=== PATIENT | male | born 1995 | race Hispanic/Latino ===

== ENCOUNTER 2021-04-20 11:26 | Emergency (ER) | payer OTHER ==
[~2021-04-20] VITALS: Ht 180.3 cm; Wt 75.9 kg
[2021-04-20] MEDS ORDERED: LIDOCAINE 5% (LIDODERM) PATCH TD ONE (12:30)
[2021-04-20] MEDS ORDERED: KETOROLAC 30 MG/ML 1ML VIAL IM ONE (12:30)
[2021-04-20] MEDS ORDERED: methocarbamoL 500 MG TAB PO ONE (12:30)
[2021-04-20] MEDS ORDERED: LIDO5DIS41 TOP (12:31)
[2021-04-20] MEDS ORDERED: METH-1164 PO (12:32)
[2021-04-20 14:19] VITALS: BP 111/68
[2021-04-20] MEDS ORDERED: **NOTE PATIENT COMMENT** MISC XX SCH (21:00)
== END 2021-04-20 14:16 | disposition home or self-care (01) ==
LOC: M ED 11:26
DX: M54.2 Cervicalgia (principal)
CPT/HCPCS: 96372; 99283; J1885

== ENCOUNTER 2021-05-26 11:57 | Emergency (ER) | payer OTHER ==
[~2021-05-26] VITALS: Ht 180.3 cm; Wt 75.5 kg
[~2021-05-26 11:57] MED LIST: LIDO5DIS41 TOP; METH-1164 PO
[2021-05-26] MEDS ORDERED: CEFU1TAB20 PO (12:03)
--- OUTSIDE RECORDS SUMMARY | 2021-05-26 12:04 | CCD ---
Author Author [facility] Organization [facility] Address Unknown Phone Unavailable Care Team Providers Care Research Development Director Name Role Phone Bridgette, Sanjay Craig Adriana MOVEMENT ASSEMBLER-C Unavailable Unavailabl e Bridgette, Sanjay Craig Adriana MOVEMENT ASSEMBLER-C Unavailable Unavailabl e Bridgette, Sanjay Craig Adriana MOVEMENT ASSEMBLER-C Unavailable Unavailabl e [facility]idgette, [facility]ana MOVEMENT ASSEMBLER-C Unavailable Unavailabl e Bridgette, [facility]ara Adriana MOVEMENT ASSEMBLER-C Unavailable Unavailabl e Bridgette, [facility] Adriana MOVEMENT ASSEMBLER-C Unavailable Unavailabl e Bridgette, [facility] Adriana MOVEMENT ASSEMBLER-C Unavailable Unavailabl e Bridgette, [facility] Adriana MOVEMENT ASSEMBLER-C Unavailable Unavailabl e Bridgette, [facility] Adriana MOVEMENT ASSEMBLER-C Unavailable Unavailabl e Bridgette, [facility] Adriana MOVEMENT ASSEMBLER-C Unavailable Unavailabl e Bridgette, Ivana Kiara Adriana MOVEMENT ASSEMBLER-C Unavailable Unavailabl e Bridgette, Ivana Kiara Adriana MOVEMENT ASSEMBLER-C Unavailable Unavailabl e Bridgette, Ivana Kiara Adriana MOVEMENT ASSEMBLER-C Unavailable Unavailabl e Bridgette, [facility] Adriana MOVEMENT ASSEMBLER-C Unavailable Unavailabl e Bridgette, [facility] Adriana MOVEMENT ASSEMBLER-C Unavailable Unavailabl e Bridgette, [facility] Adriana MOVEMENT ASSEMBLER-C Unavailable Unavailabl e Bridgette, [facility] Adriana MOVEMENT ASSEMBLER-C Unavailable Unavailabl e Bridgette, [facility] Adriana MOVEMENT ASSEMBLER-C Unavailable Unavailabl e Bridgette, [facility] Mullenyce MOVEMENT ASSEMBLER-C Unavailable Unavailabl e Brigdette, Regdarwin Mullenyce MOVEMENT ASSEMBLER-C Unavailable Unavailabl e Bridgette, Reginamichelle W Adriana MOVEMENT ASSEMBLER-C Unavailable Unavailabl e Bridgette, Reginah W Adriana MOVEMENT ASSEMBLER-C Unavailable Unavailabl e Bridgette, Reginamichelle Mullenyce MOVEMENT ASSEMBLER-C Unavailable Unavailabl e Bridgette, Reginamichelle W Adriana MOVEMENT ASSEMBLER-C Unavailable Unavailabl e Bridgette, Reginah W Adriana MOVEMENT ASSEMBLER-C Unavailable Unavailabl e Bridgette, Reginah W Adriana MOVEMENT ASSEMBLER-C Unavailable Unavailabl e Bridgette, Reginah W Adriana MOVEMENT ASSEMBLER-C Unavailable Unavailabl e Bridgette, Reginamichelle W Adriana MOVEMENT ASSEMBLER-C Unavailable Unavailabl e Bridgette, Regdarwin Mullenyce MOVEMENT ASSEMBLER-C Unavailable Unavailabl e Bridgette, Regdarwin Mullenyce MOVEMENT ASSEMBLER-C Unavailable Unavailabl e Bridgette, Regdarwin Mullenyce MOVEMENT ASSEMBLER-C Unavailable Unavailabl e Bridgette, Regdarwin Mulelnyce MOVEMENT ASSEMBLER-C Unavailable Unavailacosta e XIN TURNER MD Unavailable Unavailable XIN TURNER MD Unavailable Unavailable XIN TURNER MD Unavailable Unavailable XIN TURNER MD Unavailable Unavailable XIN TURNER MD Unavailable Unavailable XIN TURNER MD Unavailable Unavailable XIN TURNER MD Unavailable Unavailable XIN TURNER MD Unavailable Unavailable XIN TURNER MD Unavailable Unavailable XIN TURNER MD Unavailable Unavailable XIN TURNER MD Unavailable Unavailable XIN TURNER MD Unavailable Unavailable XIN TURNER MD Unavailable Unavailable XIN TURNER MD Unavailable Unavailable XIN TURNER MD Unavailable Unavailable XIN TURNER MD Unavailable Unavailable XIN TURNER MD Unavailable Unavailable XIN TURNER MD Unavailable Unavailable XIN TURNER MD Unavailable Unavailable XIN TURNER MD Unavailable Unavailable XIN TURNER MD Unavailable Unavailable XIN TURNER MD Unavailable Unavailable XIN TURNER MD Unavailable Unavailable XIN TURNER MD Unavailable Unavailable XIN TURNER MD Unavailable Unavailable XIN TURNER MD Unavailable Unavailable XIN TURNER MD Unavailable Unavailable TURNER XIN KATZ MD Unavailable Unavailable TURNER XIN KATZ MD Unavailable Unavailable TURNER XIN KATZ MD Unavailable Unavailable TURNER XIN KATZ MD Unavailable Unavailable TURNER XIN KATZ MD Unavailable Unavailable TURNER XIN KATZ MD Unavailable Unavailable Re-disclosure Warning The records that you are about to access may contain information from federally-assisted alcohol or drug abuse programs. If such information is present, then the following federally mandated warning applies: This information has been disclosed to you from records protected by federal confidentiality rules (42 CFR part 2). The federal rules prohibit you from making any further disclosure of this information unless further disclosure is expressly permitted by the written consent of the person to whom it pertains or as otherwise permitted by 42 CFR part 2. A general authorization for the release of medical or other information is NOT sufficient for this purpose. The Federal rules restrict any use of the information to criminally investigate or prosecute any alcohol or drug abuse patient.The records that you are about to access may contain highly sensitive health information, the redisclosure of which is protected by Article 27-F of the [facility] Public Health law. If you continue you may have access to information: Regarding HIV / AIDS; Provided by facilities licensed or operated by the [facility] Office of Mental Health; or Provided by the [facility] Office for People With Developmental Disabilities. If such information is present, then the following [facility] mandated warning applies: This information has been disclosed to you from confidential records which are protected by state law. State law prohibits you from making any further disclosure of this information without the specific written consent of the person to whom it pertains, or as otherwise permitted by law. Any unauthorized further disclosure in violation of state law may result in a fine or fpc sentence or both. A general authorization for the release of medical or other information is NOT sufficient authorization for further disc losure. Allergies and Adverse Reactions Type Description Substance Reaction Status Data Source(s ) Drug allergy No Known Drug Allergies No Known Drug Allergies [facility] Drug allergy No Known Allergies No Known Allergies [facility] Encounters Encounter Providers Location Date Indications Data Source(s ) Outpatient Attender: GIANNA TURNER MD 05/24 09:34:00 AM EDT 05/24/2021 09:34:00 AM [facility] Outpatient Attender: Adriana Angeles MOVEMENT ASSEMBLER-C EMERGENCY ROOM-LAB REF 05/24/2021 08:28:00 AM EDT - 05/24/2021 08:28:00 AM EDT [facility] Outpatient Attender: Adriana Thorntonu MOVEMENT ASSEMBLER-C 05/08/2021 09:07:0 0 AM EDT [facility] Outpatient [facility] 05/08/2021 12:00:00 AM EDT eCW1 ([facility]) Medications No Information Insurance Providers Payer name Policy type / Coverage type Policy ID Covered green party ID Covered green party's relationship to harrison Policy Harrison Plan Information [facility] ACTIVE DUTY [id number] SP [id number] [facility] WPS [id number] S [id number] Problems, Conditions, and Diagnoses Code Display Name Description Problem Type Effective Dates Data Source(s) Z20.828 Contact with and (suspected) exposure to other viral communicable diseases CONTACT W AND EXPOSURE TO OTH VIRAL COMM Diagnosis 05/24/2021 08:28:00 AM [facility] Surgeries/Procedures No Information Results ID Date Data Source [id number] 05/24/2021 02:27:00 PM [facility] DATE OF PROCEDURE: 05/24/2021 OPERATION : 1. Nasal septoplasty cautery.2. Bilateral inferior turbinates. PREOPERATIVE DIAGNOSIS:1. Nasal obstruction2. Deviated septum and inferior turbinate hyperplasia, bilateral. POSTOPERATIVE DIAGNOSIS: Same. PROCEDURE: Under satisfactory LMA anesthesia, the nose was prepped and draped. The septum was injected with Lidocaine with Epinephrine. An incision made through the right anterior septum and carried through the cartilage without complication. Cartilage was exposed on both sides. The cartilage protruding intothe right nasal vault severely was removed using sci ssors and ethmoid forceps. Bleeding was minimal, approximately 25 mL's. Wound was copiously irrigated and closed with quilting suture and incisional suture. Attention was then turned to the turbinates. They were reduced using suction Bovie without complication. Airway was good at this point. The nose and nasopharynx were irrigated. The patient woke up and was taken to the recovery room in good condition. There wereno complications. Name Value Range Interpretation Code Description Data Sonal rce(s) Supporting Document(s) ID Date Data Source [id number] 05/24/2021 09:28:00 AM EDT [facility] Name Value Range Interpretation Code Description Data Sonal rce(s) Supporting Document(s) COVID-19 NEGATIVE NEGATIVE [facility] Negative results should be treated as pr esumptive and, ifinconsistent with clinical signs and symptoms or necessaryfor patient management, should be tested with differentauthorized or cleared molecular tests.Negative results do not preclude SARS-CoV-2 infection andshould not be used as the sole basis for patient managementdecisions.This is a rapid molecular isothermal nucleic acidamplification technology (NAAT) in vitro diagnostic testutilizing a loop mediated isothermal amplification (LAMP)test with nicking endonuclease amplification reaction(NEAR) intended for the qualitative detection of nucleica morris from the SARS-CoV-2 viral RNA in direct nasal,nasopharyngeal or throat swabs from individuals who aresuspected of COVID-19.Results are for the indentification of SARS-CoV-2 RNA. [id number] RNA is generally detectable in respiratorysamples during the actue phase of infection. Procedure Social History Code Duration Value Status Description Data Source(s ) Smoking 05/08/2021 12:00:00 AM EDT Former Smoker completed Former Smoker eCW1 ([facility]) Vital Signs ID Date Data Source UNK Name Value Range Interpretation Code Description Data Source(s) Body height 71 [in_i] 71 [in_i] eCW1 ([facility]) Body weight 170 [lb_av] 170 [lb_av] eCW1 ([facility]) Body mass index (BMI) [Ratio] 23.71 kg/m2 23.71 kg/m2 eCW1 ([facility]) Body temperature 98.2 [degF] 98.2 [degF] eCW1 ( [facility]) Heart rate 82 /min 82 /min eCW1 ([facility]) Respiratory rate 16 /min 16 /min eCW1 ([facility]) Oxygen saturation in Arterial blood by Pulse oximetry 98 % 98 % eCW1 ([facility])
--- OUTSIDE RECORDS SUMMARY | 2021-05-26 12:04 | CCD ---
Author Author [facility] Organization [facility] Address Unknown Phone Unavailable Care Team Providers Care Ic Designer Gate Arrays Name Role Phone BridgetteAdriana herrera Unavailable Unavailable PROBLEMS No Information ALLERGIES No Known Allergies ENCOUNTERS from 1997 to 2021-05-15 Encounter Location Date Provider [facility] [address] [place] [address] 2020 Adriana Angeles Deviated nasal septum J34.2 IMMUNIZATIONS No Information SOCIAL HISTORY Tobacco Use: Social History Observation Description Date Details (start date - stop date) Former Smoker Sex Assigned At : Social History Observation Description Sex Assigned At Unknown Tobacco Use/Smoking Question Answer Notes Are you a former smoker How long has it been since you last smoked? 1-5 years REASON FOR REFERRAL No Information VITAL SIGNS Height 71 in May, Weight 170 lbs May, BMI 23.71 kg/m2 May, Temperature 98.2 degrees Fahrenheit May, Heart Rate 82 /min May, Respiratory Rate 16 /min May, Oximetry 98 % May, Blood pressure systolic 122 mmHg May, Blood pressure diastolic 63 mmHg May, MEDICATIONS Medication SIG (Take, Route, Frequency, Duration) Notes Start Da te End Date Status Methocarbamol 500 MG 1.5 tablets Orally every 4 hrs for 30 day(s) PRN Not-Taking PROCEDURES No Information RESULTS No Results REASON FOR VISIT deviated septum MEDICAL (GENERAL) HISTORY Type Description Date Surgical History wisdom teeth 2020 Goals Section No Information Health Concerns No Information MEDICAL EQUIPMENT No Information MENTAL STATUS No Information FUNCTIONAL STATUS No Information ASSESSMENTS Encounter Date Diagnosis Assessment Notes Treatment Notes Treatm ent Clinical Notes May, Deviated nasal septum (ICD-10 - J34.2) Pt advised septoplasty for treatment with Dr. Vuong- risks/benefits of procedure discussed. He v/u and is agreeable. Time spent with pt 20 minutes. PLAN OF TREATMENT Treatment Notes Assessment Notes Clinical Notes Deviated nasal septum Pt advised septoplasty for t reatment with Dr. Vuong- risks/benefits of procedure discussed. He v/u and is agreeable. Time spent with pt 20 minutes. Next Appt Details prn Reason: Provider Name:Adriana Angeles, 2021-05-29 0 8:15:00 AM, [address] [place] [address], [facility], Insurance Providers Payer Name Payer Address Payer Phone Insured Name Patient Relati onship to Insured Coverage Start Date Coverage End Date [facility] [address] [facility] [id number] BRENDA MANZANO self
--- OUTSIDE RECORDS SUMMARY | 2021-05-26 13:11 | CCD ---
Author Author [facility] Organization [facility] Address Unknown Phone Unavailable Care Team Providers Care Acquisition Lead Name Role Phone Bridgette, Sanjay Craig Adriana BORING INSPECTOR-C Unavailable Unavailabl e Bridgette, Sanjay Craig Adriana BORING INSPECTOR-C Unavailable Unavailabl e Bridgetet, Sanjay Craig Adriana BORING INSPECTOR-C Unavailable Unavailabl e Br[facility], [facility]ana BORING INSPECTOR-C Unavailable Unavailabl e Bridgette, [facility] Adriana BORING INSPECTOR-C Unavailable Unavailabl e Bridgette, [facility] Adriana BORING INSPECTOR-C Unavailable Unavailabl e Bridgette, [facility] Adriana BORING INSPECTOR-C Unavailable Unavailabl e Bridgette, [facility] Adriana BORING INSPECTOR-C Unavailable Unavailabl e Bridgette, [facility] Adriana BORING INSPECTOR-C Unavailable Unavailabl e Bridgette, [facility] Adriana BORING INSPECTOR-C Unavailable Unavailabl e Bridgette, Ivana Kiara Adriana BORING INSPECTOR-C Unavailable Unavailabl e Bridgette, Ivana Kiara Adriana BORING INSPECTOR-C Unavailable Unavailabl e Bridgette, Ivana Kiara Adriana BORING INSPECTOR-C Unavailable Unavailabl e Bridgette, [facility] Adriana BORING INSPECTOR-C Unavailable Unavailabl e Bridgette, [facility] Adriana BORING INSPECTOR-C Unavailable Unavailabl e Bridgette, [facility] Adriana BORING INSPECTOR-C Unavailable Unavailabl e Bridgette, [facility] Adriana BORING INSPECTOR-C Unavailable Unavailabl e Bridgette, [facility] Adriana BORING INSPECTOR-C Unavailable Unavailabl e Bridgette, [facility] Mullenyce BORING INSPECTOR-C Unavailable Unavailabl e Bridgette, Regdarwin Mullenyce BORING INSPECTOR-C Unavailable Unavailabl e Bridgette, Reginamichelle W Adriana BORING INSPECTOR-C Unavailable Unavailabl e Bridgette, Reginah W Adriana BORING INSPECTOR-C Unavailable Unavailabl e Bridgette, Reginamichelle Mullenyce BORING INSPECTOR-C Unavailable Unavailabl e Bridgette, Reginamichelle W Adriana BORING INSPECTOR-C Unavailable Unavailabl e Bridgette, Reginah W Adriana BORING INSPECTOR-C Unavailable Unavailabl e Bridgette, Reginah W Adriana BORING INSPECTOR-C Unavailable Unavailabl e Bridgette, Reginah W Adriana BORING INSPECTOR-C Unavailable Unavailabl e Bridgette, Reginamichelle W Adriana BORING INSPECTOR-C Unavailable Unavailabl e Bridgette, Regdarwin Mullenyce BORING INSPECTOR-C Unavailable Unavailabl e Bridgette, Regdarwin Mullenyce BORING INSPECTOR-C Unavailable Unavailabl e Bridgette, Regdarwin Mullenyce BORING INSPECTOR-C Unavailable Unavailabl e Bridgette, Regdarwin Mullenyce BORING INSPECTOR-C Unavailable Unavailacosta e XIN TURNER MD Unavailable [...] is protected by Article 27-F of the [facility] Public Health law. If you continue you may have access to information: Regarding HIV / AIDS; Provided by facilities licensed or operated by the [facility] Office of Mental Health; or Provided by the [facility] Office for People With Developmental Disabilities. If such information is present, then the following [facility] mandated warning applies: This information has [...] law may result in a fine or retirement sentence or both. A general authorization for the release of medical or other information is NOT sufficient authorization for further disc losure. Allergies and Adverse Reactions Type Description Substance Reaction Status Data Source(s ) Drug allergy No Known Drug Allergies No Known Drug Allergies [facility] Drug allergy No Known Allergies No Known Allergies [facility] Encounters Encounter Providers Location Date Indications Data Source(s ) Outpatient Attender: GIANNA TURNER MD 05/24 09:34:00 AM EDT 05/24/2021 09:34:00 AM [facility] Outpatient Attender: Adriana Angeles BORING INSPECTOR-C EMERGENCY ROOM-LAB REF 05/24/2021 08:28:00 AM EDT - 05/24/2021 08:28:00 AM EDT [facility] Outpatient Attender: Adriana Thorntonu BORING INSPECTOR-C 05/08/2021 09:07:0 0 AM EDT [facility] Outpatient [facility] 05/08/2021 12:00:00 AM EDT eCW1 ([facility]) Medications No Information Insurance Providers Payer name Policy type / Coverage type Policy ID Covered green party ID Covered green party's relationship to harrison Policy Harrison Plan Information [facility] ACTIVE DUTY [id number] SP [id number] [facility] WPS [id number] S [id number] Problems, Conditions, and Diagnoses Code Display Name Description Problem Type Effective Dates Data Source(s) Z20.828 Contact with and (suspected) exposure to other viral communicable diseases CONTACT W AND EXPOSURE TO OTH VIRAL COMM Diagnosis 05/24/2021 08:28:00 AM [facility] Surgeries/Procedures No Information Results ID Date Data Source [id number] 05/24/2021 02:27:00 PM [facility] DATE OF PROCEDURE: 05/24/2021 OPERATION [...] rce(s) Supporting Document(s) ID Date Data Source [id number] 05/24/2021 09:28:00 AM EDT [facility] Name Value Range Interpretation Code Description Data Sonal rce(s) Supporting Document(s) COVID-19 NEGATIVE NEGATIVE [facility] Negative results should be treated [...] are for the indentification of SARS-CoV-2 RNA. [id number] RNA is generally detectable in respiratorysamples during the actue phase of infection. Procedure Social History Code Duration Value Status Description Data Source(s ) Smoking 05/08/2021 12:00:00 AM EDT Former Smoker completed Former Smoker eCW1 ([facility]) Vital Signs ID Date Data Source UNK Name Value Range Interpretation Code Description Data Source(s) Body height 71 [in_i] 71 [in_i] eCW1 ([facility]) Body weight 170 [lb_av] 170 [lb_av] eCW1 ([facility]) Body mass index (BMI) [Ratio] 23.71 kg/m2 23.71 kg/m2 eCW1 ([facility]) Body temperature 98.2 [degF] 98.2 [degF] eCW1 ( [facility]) Heart rate 82 /min 82 /min eCW1 ([facility]) Respiratory rate 16 /min 16 /min eCW1 ([facility]) Oxygen saturation in Arterial blood by Pulse oximetry 98 % 98 % eCW1 ([facility])
[2021-05-26] MEDS ORDERED: OXYC1TAB23 (13:16)
[2021-05-26 14:44] VITALS: BP 129/76
== END 2021-05-26 15:09 | disposition home or self-care (01) ==
LOC: M ED 11:57
DX: J95.831 Postprocedural hemorrhage of a respiratory system organ or structure following other procedure (principal); J31.0 Chronic rhinitis

== ENCOUNTER 2022-10-10 18:14 | Inpatient (IN) | payer OTHER ==
[~2022-10-10] VITALS: Ht 180.3 cm; Wt 72.7 kg
[~2022-10-10 18:14] MED LIST changes: +CEFU1TAB20 PO; +OXYC1TAB23
[2022-10-10 19:59] LABS: HEMATOCRIT 43.5 % (42.0-52.0); HEMOGLOBIN 15.4 g/dl (13.5-17.5); MEAN CORPUSCULAR HGB CONC 35.4 g/dl (32.0-36.5); MEAN CORPUSCULAR VOLUME 90.2 fl (80.0-96.0); PLATELET COUNT, AUTOMATED 249 10^3/uL (150-450); RED BLOOD COUNT 4.82 10^6/uL (4.30-6.10); WHITE BLOOD COUNT 6.3 10^3/uL (4.0-10.0)
[2022-10-10] MEDS ORDERED: HOME MED LIST COMPLETE! XX SCH (20:15)
[2022-10-10 20:22] LABS: ETHYL ALCOHOL (ETHANOL) 0.005 % (0.000-0.010)
[2022-10-10 20:24] LABS: ACETAMINOPHEN LEVEL < 2.0 UG/ML (10.0-20.0); ALBUMIN 4.9 G/DL (3.2-5.2); ALKALINE PHOSPHATASE 95 U/L (46-116); ALT/SGPT 27 U/L (7.0-40); AST/SGOT 15 U/L (<34); BILIRUBIN,DIRECT 0.2 MG/DL (<0.4); BILIRUBIN,TOTAL 0.8 MG/DL (0.3-1.2); BLOOD UREA NITROGEN 8 MG/DL (9-23); CALCIUM LEVEL 9.5 MG/DL (8.5-10.1); CARBON DIOXIDE LEVEL 27 MMOL/L (20-31); CHLORIDE LEVEL 105 MMOL/L (98-107); GLOMERULAR FILTRATION RATE > 60.0 (>60); GLUCOSE, FASTING 107 MG/DL (60-100); POTASSIUM SERUM 4.2 MMOL/L (3.5-5.1); SALICYLATE LEVEL < 3.0 MG/DL (<30); SODIUM LEVEL 140 MMOL/L (136-145); TOTAL PROTEIN 7.5 G/DL (5.7-8.2)
[2022-10-10 20:26] LABS: THYROID STIMULATING HORMONE 1.079 uIU/ML (0.55-4.78)
[2022-10-10 21:48] LABS: AMPHETAMINES LEVEL URINE NEGATIVE (NEGATIVE); BARBITURATES URINE NEGATIVE (NEGATIVE); BENZODIAZEPINES URINE NEGATIVE (NEGATIVE); CANNABINOIDS URINE NEGATIVE (NEGATIVE); COCAINE METABOLITE URINE NEGATIVE (NEGATIVE); METHADONE URINE NEGATIVE (NEGATIVE); OPIATES URINE NEGATIVE (NEGATIVE); PHENCYCLIDINE URINE NEGATIVE (NEGATIVE)
[2022-10-10] MEDS ORDERED: diphenhydrAMINE 25MG CAP PO PRN (21:55)
[2022-10-10] MEDS ORDERED: traZODone 50 MG TAB PO PRN (21:55)
[2022-10-10] MEDS ORDERED: NICOTINE 21MG/24HR 1 EA TRANSDERMAL TD PRN (21:55)
[2022-10-10] MEDS ORDERED: MOM 30ML SUSPENSION UDC PO PRN (21:55)
[2022-10-10] MEDS ORDERED: IBUPROFEN 400MG TAB PO PRN (21:55)
[2022-10-10] MEDS ORDERED: ACETAMINOPHEN TAB 650MG DOSE (2X325MG) PO PRN (21:55)
[2022-10-10] MEDS ORDERED: MAALOX 30 ML SUSP *UDC PO PRN (21:55)
[2022-10-10] MEDS ORDERED: LORazepam 1 MG TAB PO PRN (21:55)
[2022-10-10 22:41] VITALS: BP 127/81
[2022-10-11 06:39] VITALS: BP 115/64
[2022-10-11] MEDS: ESCITALOPRAM OXALATE 5MG TABLET (LEXAPRO) PO SCH (12:02)
[2022-10-11 18:17] VITALS: BP 120/76
[2022-10-12 06:02] VITALS: BP 107/67
[2022-10-12] MEDS: ESCITALOPRAM OXALATE 5MG TABLET (LEXAPRO) PO SCH (09:33)
[2022-10-12 16:01] VITALS: BP 125/61
[2022-10-13 06:32] VITALS: BP 115/61
[2022-10-13] MEDS: ESCITALOPRAM OXALATE 5MG TABLET (LEXAPRO) PO SCH (08:45)
[2022-10-13 16:29] VITALS: BP 117/81
[2022-10-13] MEDS ORDERED: LEXA5TAB13 PO (17:04)
[2022-10-14 06:56] VITALS: BP 113/74
[2022-10-14] MEDS: ESCITALOPRAM OXALATE 5MG TABLET (LEXAPRO) PO SCH (08:18)
[2022-10-14] MEDS ORDERED: LEXA5TAB13 PO (14:21)
== END 2022-10-14 11:40 | disposition home or self-care (01) | DRG 885 ==
LOC: M ED 18:14 → EDBD 18:14 → M ED INP 21:55 → M PSY 22:12
PROVIDERS: ADMIT Student in an Organized Health Care Education/Training Program; ATTEND Psychiatry & Neurology Psychiatry
DX: F32.2 Major depressive disorder, single episode, severe without psychotic features (principal); R45.851 Suicidal ideations; F41.8 Other specified anxiety disorders; Z59.86 Financial insecurity; Z87.891 Personal history of nicotine dependence; Z20.822 Contact with and (suspected) exposure to COVID-19; Z63.8 Other specified problems related to primary support group